=== PATIENT | male | born 1935 | race Caucasian/White ===

== ENCOUNTER → 2019-03-23 | Day surgery (SDC) | payer MEDICARE ==
[2019-03-21 10:39] LABS: BASOPHILS % 0.4 % (0.0-1.0); EOSINOPHILS # (AUTO) 0.1 (0.0-0.4); HEMATOCRIT 40.5 % (38.2-49.6); HEMOGLOBIN 13.1 g/dL (14.0-18.0); LYMPHOCYTES # (AUTO) 1.7 (1.0-3.2); LYMPHOCYTES % 25.3 % (18.0-39.1); MEAN CORPUSCULAR HEMOGLOBIN 28.2 pg (28-32); MEAN CORPUSCULAR HGB CONC 32.3 g/dL (31-35); MEAN CORPUSCULAR VOLUME 87.3 fL (81-99); MONOCYTES # (AUTO) 0.4 (0.2-0.8); MONOCYTES % 6.3 % (4.4-11.3); NEUTROPHILS # (AUTO) 4.5 (2.1-6.9); NEUTROPHILS % 66.9 % (38.7-80.0); PLATELET COUNT 211 x10e3/uL (140-360); RED BLOOD COUNT 4.64 x10e6/uL (4.3-5.7); RED CELL DISTRIBUTION WIDTH 13.8 % (11.7-14.4)
[~2019-03-23] MED LIST: ATORVASTATIN; FISH OIL; GLUCAGON FOR INJ 1 MG VIAL ONE; HYOSCYAMINE 0.125 MG TAB ONE; HYOSCYAMINE SULFATE 0.5 MG/ML INJ ONE; LIDOCAINE HCL 2% LOCAL INJ 5 ML SDV VIAL INJ ONE; PROPOFOL IV EMULSION 10 MG/ML 50 ML VIAL ONE
--- OUTSIDE RECORDS SUMMARY | 2019-03-23 09:30 | XMS REPORT ---
[facility] Address Unknown Phone Unavailable Care Team Providers Care Chief Librarian Branch Name Role Phone Unavailable Unavailable Payers Payer Name Policy Type Policy Number Effective Date Expiration Date Problems This patient has no known problems. Allergies, Adverse Reactions, Alerts Allergy Name Allergy Type Status Severity Reaction(s) Onset Date Inactive Date Treating Clinician Comments No Known Allergies DA Active U 2019-02-21 00:00:00 Penicillins DA Active DC 2019-02-21 00:00:00 Medications This patient has no known medications. Results Test Description Test Time Test Comments Text Results Atomic Results Result Comments FE W/TOTAL IRON BINDING CAP. 2019-02-26 14:08:00 SERUM IRON (test code=IRON) 30 ug/dL 50-175 TOTAL IRON BINDING CAPACITY (test code=TIBC) 282 mcg/dL 250-450 IRON SATURATION (test code=FESAT) 10.64 % 13-45 VITAMIN [id number] 14:08:00* Test Item Value Reference Range Comments VITAMIN B12 (test code=VITB12) 1103 pg/mL 193-986 FOLIC [id number] 14:08:00* Test Item Value Reference Range Comments FOLIC ACID (test code=FOL) 40.7 ng/mL 3.10-17.50 THYROID PROFILE [id number] 14:08:00* Test Item Value Reference Range Comments T3 UPTAKE (test code=T3UP) 32.0 % 30.0-40.0 T4 (THYROXINE) (test code=T4) 9.3 ug/dL 4.5-13.9 T7 (FREE THYROXINE INDEX) (test code=T7) 2.97 FTI 1.3-5.1 THYROID STIMULATING HORMONE (test code=TSH) 0.947 uIU/mL 0.36-3.74 TSH REFERENCE RANGES: EUTHYROID: 0.35 - 4.3 mIU/mL HYPO : > 5.5 mIU/mL HYPER : < 0.35 mIU/mL METHYLMALONIC [id number] 14:08:00* Test Item Value Reference Range Comments METHYLMALONIC ACID (test code=METHM) 155 nmol/L 0-378 [id number] 14:08:00* Test Item Value Reference Range Comments HOMOCYSTEINE (test code=HOMOCY) 10.7 umol/L 0.0-15.0 Performed At: [facility] [address] [id number] Kyle L MD Ph:[phone] FE W/TOTAL IRON BINDING CAP.2019-02-23 09:10:00* Test Item Value Reference Range Comments SERUM IRON (test code=IRON) 30 ug/dL 50-175 TOTAL IRON BINDING CAPACITY (test code=TIBC) 282 mcg/dL 250-450 IRON SATURATION (test code=FESAT) 10.64 % 13-45 VITAMIN [id number] 09:10:00* Test Item Value Reference Range Comments VITAMIN B12 (test code=VITB12) 1103 pg/mL 193-986 FOLIC [id number] 09:10:00* Test Item Value Reference Range Comments FOLIC ACID (test code=FOL) 40.7 ng/mL 3.10-17.50 THYROID PROFILE [id number] 09:10:00* Test Item Value Reference Range Comments T3 UPTAKE (test code=T3UP) 32.0 % 30.0-40.0 T4 (THYROXINE) (test code=T4) 9.3 ug/dL 4.5-13.9 T7 (FREE THYROXINE INDEX) (test code=T7) 2.97 FTI 1.3-5.1 THYROID STIMULATING HORMONE (test code=TSH) 0.947 uIU/mL 0.36-3.74 TSH REFERENCE RANGES: EUTHYROID: 0.35 - 4.3 mIU/mL HYPO : > 5.5 mIU/mL HYPER : < 0.35 mIU/mL METHYLMALONIC [id number] 09:10:00* Test Item Value Reference Range Comments METHYLMALONIC ACID (test code=METHM) nmol/L [id number] 09:10:00* Test Item Value Reference Range Comments HOMOCYSTEINE (test code=HOMOCY) 10.7 umol/L 0.0-15.0 Performed At: [facility] [address] [id number] Jesús Torres MD Ph:[phone] BASIC METABOLIC [id number] 05:36:00* Test Item Value Reference Range Comments SODIUM (test code=NA) 143 mmol/L 136-145 POTASSIUM (test code=K) 4.5 mmol/L 3.5-5.1 CHLORIDE (test code=CL) 108.0 mmol/L 98-107 CARBON DIOXIDE (test code=CO2) 28.0 mmol/L 21-32 ANION GAP (test code=GAP) 11.5 10-20 GLUCOSE (test code=GLU) 94 mg/dL 74-106 BLOOD UREA NITROGEN (test code=BUN) 14 mg/dL 7-18 GLOMERULAR FILTRATION RATE (test code=GFR) > 60 mL/min >=60 Estimated GFR by using Modified MDRD formula.Chronic kidney disease is defined as either kidney damageor GFR <60 mL/min/1.73 m2 for >3 months. CREATININE (test code=CREAT) 1.00 mg/dL 0.7-1.3 BUN/CREATININE RATIO (test code=BUN/CREA) 13.5 10-20 CALCIUM (test code=CA) 8.5 mg/dL 8.5-10.1 BASIC METABOLIC [id number] 05:25:00* Test Item Value Reference Range Comments SODIUM (test code=NA) 143 mmol/L 136-145 POTASSIUM (test code=K) 4.5 mmol/L 3.5-5.1 CHLORIDE (test code=CL) 108.0 mmol/L 98-107 CARBON DIOXIDE (test code=CO2) mmol/L 21-32 ANION GAP (test code=GAP) 10-20 GLUCOSE (test code=GLU) mg/dL 74-106 BLOOD UREA NITROGEN (test code=BUN) mg/dL 7-18 GLOMERULAR FILTRATION RATE (test code=GFR) mL/min >=60 CREATININE (test code=CREAT) mg/dL 0.7-1.3 BUN/CREATININE RATIO (test code=BUN/CREA) 10-20 CALCIUM (test code=CA) mg/dL 8.5-10.1 CBC W/AUTO [id number] 05:12:00* Test Item Value Reference Range Comments WHITE BLOOD CELL (test code=WBC) 8.1 K/mm3 4.5-12.5 RED BLOOD CELL (test code=RBC) 4.48 mill/mm3 4.0-5.8 HEMOGLOBIN (test code=HGB) 12.6 gram/dL 13.0-17.5 HEMATOCRIT (test code=HCT) 38.6 % 42.0-52.0 MEAN CELL VOLUME (test code=MCV) 86.2 fL 80-98 MEAN CELL HGB (test code=MCH) 28.1 picogram 27.0-33.0 MEAN CELL HGB CONCETRATION (test code=MCHC) 32.6 gram/dL 33.0-36.0 RED CELL DISTRIBUTION WIDTH (test code=RDW) 12.6 % 11.6-16.2 RED CELL DISTRIBUTION WIDTH SD (test code=RDW-SD) 39.6 fL 37.0-51.0 PLATELET COUNT (test code=PLT) 219 K/mm3 150-450 MEAN PLATELET VOLUME (test code=MPV) 12.1 fL 6.7-11.0 NEUTROPHIL % (test code=NT%) 71.2 % 39.0-69.0 IMMATURE GRANULOCYTE % (test code=IG%) 0.2 % 0.0-5.0 LYMPHOCYTE % (test code=LY%) 20.9 % 25.0-55.0 MONOCYTE % (test code=MO%) 6.5 % 0.0-10.0 EOSINOPHIL % (test code=EO%) 1.0 % 0.0-5.0 BASOPHIL % (test code=BA%) 0.2 % 0.0-1.0 NUCLEATED RBC % (test code=NRBC%) 0.0 % 0-0 NEUTROPHIL # (test code=NT#) 5.73 K/mm3 1.8-7.7 IMMATURE GRANULOCYTE # (test code=IG#) 0.02 x10 3/uL 0-0.03 LYMPHOCYTE # (test code=LY#) 1.68 K/mm3 1.0-5.0 MONOCYTE # (test code=MO#) 0.52 K/mm3 0-0.8 EOSINOPHIL # (test code=EO#) 0.08 K/mm3 0.0-0.5 BASOPHIL # (test code=BA#) 0.02 K/mm3 0.0-0.2 NUCLEATED RBC # (test code=NRBC#) 0.00 K/mm3 0.0-0.1 FE W/TOTAL IRON BINDING CAP.2019-02-22 11:29:00* Test Item Value Reference Range Comments SERUM IRON (test code=IRON) 30 ug/dL 50-175 TOTAL IRON BINDING CAPACITY (test code=TIBC) 282 mcg/dL 250-450 IRON SATURATION (test code=FESAT) 10.64 % 13-45 VITAMIN [id number] 11:29:00* Test Item Value Reference Range Comments VITAMIN B12 (test code=VITB12) 1103 pg/mL 193-986 FOLIC [id number] 11:29:00* Test Item Value Reference Range Comments FOLIC ACID (test code=FOL) 40.7 ng/mL 3.10-17.50 THYROID PROFILE [id number] 11:29:00* Test Item Value Reference Range Comments T3 UPTAKE (test code=T3UP) 32.0 % 30.0-40.0 T4 (THYROXINE) (test code=T4) 9.3 ug/dL 4.5-13.9 T7 (FREE THYROXINE INDEX) (test code=T7) 2.97 FTI 1.3-5.1 THYROID STIMULATING HORMONE (test code=TSH) 0.947 uIU/mL 0.36-3.74 TSH REFERENCE RANGES: EUTHYROID: 0.35 - 4.3 mIU/mL HYPO : > 5.5 mIU/mL HYPER : < 0.35 mIU/mL METHYLMALONIC [id number] 11:29:00* Test Item Value Reference Range Comments METHYLMALONIC ACID (test code=METHM) nmol/L [id number] 11:29:00* Test Item Value Reference Range Comments HOMOCYSTEINE (test code=HOMOCY) umol/L - XR CHEST 2 [id number] 08:24:00 FAX: Brad Lin MD [phone] [place]: St: ADM Name: BRI FANG [facility] : [birth year] Age/S: 83/M [address] [facility] Unit #: [id number] Loc: V.[address] [place] [address] Phys: Brad Foster MD Acct: [id number] Dis Date: Status: ADM IN PHONE #: [phone] Exam Date: 02/22/2019 0813 FAX #: [phone] Reason: stat not yet done EXAMS: CPT CODE: [id number] XR CHEST 2 V 77442 REASON FOR EXAM: stat not yet done Exam Order Date: 02/22/2019 12:00 AM Ordering M.D.: Brad Foster MD PROCEDURE: - XR CHEST 2 V COMPARISON: CT chest earlier today is available for review. FINDI NGS: Opacity in the infrahilar right lung, primarily in the middle lobe but to a lesser extent in the lower lobe, likely corresponds to the groundglass opacity seen on the prior CT scan and likely represents infect ion. There is no pleural effusion or pneumothorax. Pulmonary vascularity is within normal limits. Cardiomediastinal silhouette is normal in size for technique. The mediastinal contours are within normal limits. Musculoskeletal structures are within normal limits. The visualized upper abdomen is within normal limits. IMP RESSION: Pneumonia involving the right middle and lower lobes. This is b annita characterized on the previous CT scan. at 0824 Reported and signed by: Nicola Reynoso MD CC: Brad Foster MD Technologist: RT ZENOBIA(R) Trnscrd Date/Time/By: 02/22/2019 (823) : By: [email or web address] Orig Print D/T: S: 02/22/2019 (3544) PAGE 1 Signed Report - CT CHEST W/O CONTRAST 2019-02-22 08:20:00 Name: BRI GALVAN [facility] : 1935 Age/S: 83 / M [address] [facility] Unit #: [id number] Loc: [place] [address] Phys: Brad Foster MD Acct: [id number] Dis Date: Status: ADM IN PHONE #: [phone] Exam Date: 02/22/2019 0808 FAX #: [phone] Reason: cap cxr not done x 12h EXAMS: CPT CODE: [id number] CT CHEST W/O CONTRAST 86121 REASON FOR EXAM: cap cxr not done x 12h EXAM ORDER DATE: 02/22/2019 7:19 AM Ordering M.D.: Brad Foster MD PROCEDURE: - CT CHEST W/O CONTRAST Comparison:CT chest September 16, [address] images of the chest were obtained without IV contrast. Reconstructed sagittal and coronal images of the chest were provided for interpretation. Dose reduction techniques were applied. FINDINGS: The absence of IV contrast limits the sensitivity of this exam for detecting soft tissue pathology and differentiating atelectasis from consolidations. Visualized neck: Grossly normal Airways, Lungs and Pleura: There are groundglass opacities in the right middle lobe, medial basal segment of the right lower lobe, and in the posterior basal segment of the right lower lobe. These opacities may represent a multifocal infection. There are a few nodular opacities in the left lower lobe (3/40) that are unchanged from the prior exam and may represent parenchymal scarring from a prior infection. Airways are patent. No pleural abnormality. Heart, great vessels, pulmonary vessels, mediastinum: No cardiomegaly or pericardial effusion. Three-vessel coronary atherosclerosis is present. Atherosclerotic disease is also scattered throughout the thoracic aorta. Thoracic aorta and pulmonary trunk are normal in caliber. Lymph nodes: No axillary or internal mammary adenopathy. Hilar lymph nodes are suboptimally evaluated due to the absence of IV contrast. There are a few subcentimeter mediastinal lymph nodes which are normal in size by CT criteria. Musculoskeletal/chest wall: Degenerative changes are s een throughout the visualized spine. PAGE 1 Signed Report (CONTINUED) Name: BRI GALVAN [facility] : 1935 Age/S: 83 / M [address] [facility] Unit #: [id number] Loc: [place] [address] Phys: Brad Foster MD Acct: [id number] Dis Date: Status: ADM IN PHONE #: [phone] Exam Date: 08 FAX #: [phone] Reason: cap cxr not done x 12h EXAMS: CPT CODE: [id number] CT CHEST W/O CONTRAST 26256 <Continued> Visualized upper abdomen: Poorly demarcated hypodensity is present in the left lobe of the liver. This is suboptimally evaluated in the absence of IV contrast but is unchanged from the prior CT scan and likely represents a benign finding. Stones are present in the gallbladder. No pericholecystic fluid or gallbladder wall thickening to suggest acute cholecystitis. Small hiatal hernia is present. Cystic lesion in the left kidney is unchanged from the prior exam. IMPRESSION: Findings of infectious process involving the right middle lobe and right lower lobe as described above. Follow-up imaging in 8-12 weeks is recommended to ensure resolution. at 0820 Reported and signed by: Nicola Reynoso MD CC: Brad Foster MD Technologist:Abdiel Castellon RT(R),(MR),(CT) CTDI: DLP: Trnscb Date/Time: 02/22/2019 (819) [email or web address].RR31 Orig Print D/T: S: 02/22/2019 (822) PAGE 2 Signed Report COMPREHENSIVE METABOLIC [id number] 19:31:00* Test Item Value Reference Range Comments SODIUM (test code=NA) 141 mmol/L 136-145 POTASSIUM (test code=K) 4.0 mmol/L 3.5-5.1 CHLORIDE (test code=CL) 108.0 mmol/L 98-107 CARBON DIOXIDE (test code=CO2) 29.0 mmol/L 21-32 ANION GAP (test code=GAP) 8.0 10-20 GLUCOSE (test code=GLU) 106 mg/dL 74-106 BLOOD UREA NITROGEN (test code=BUN) 13 mg/dL 7-18 GLOMERULAR FILTRATION RATE (test code=GFR) > 60 mL/min >=60 Estimated GFR by using Modified MDRD formula.Chronic kidney disease is defined as either kidney damageor GFR <60 mL/min/1.73 m2 for >3 months. CREATININE (test code=CREAT) 1.10 mg/dL 0.7-1.3 BUN/CREATININE RATIO (test code=BUN/CREA) 11.4 10-20 TOTAL PROTEIN (test code=PROT) 7.0 gram/dL 6.4-8.2 ALBUMIN (test code=ALB) 3.2 g/dL 3.4-5.0 GLOBULIN (test code=GLOB) 3.8 gram/dL 2.7-4.2 ALBUMIN/GLOBULIN RATIO (test code=A/G) 0.8 0.75-1.50 CALCIUM (test code=CA) 8.5 mg/dL 8.5-10.1 BILIRUBIN TOTAL (test code=BILT) 0.70 mg/dL 0.0-1.0 SGOT/AST (test code=AST) 15 IUnit/L 15-37 SGPT/ALT (test code=ALT) 19 IUnit/L 12-78 ALKALINE PHOSPHATASE TOTAL (test code=ALKP) 46 IUnit/L 45-117 Note change in reference range due to change in reagent. COMPREHENSIVE METABOLIC [id number] 19:25:00* Test Item Value Reference Range Comments SODIUM (test code=NA) 141 mmol/L 136-145 POTASSIUM (test code=K) 4.0 mmol/L 3.5-5.1 CHLORIDE (test code=CL) 108.0 mmol/L 98-107 CARBON DIOXIDE (test code=CO2) mmol/L 21-32 ANION GAP (test code=GAP) 10-20 GLUCOSE (test code=GLU) mg/dL 74-106 BLOOD UREA NITROGEN (test code=BUN) mg/dL 7-18 GLOMERULAR FILTRATION RATE (test code=GFR) mL/min >=60 CREATININE (test code=CREAT) mg/dL 0.7-1.3 BUN/CREATININE RATIO (test code=BUN/CREA) 10-20 TOTAL PROTEIN (test code=PROT) gram/dL 6.4-8.2 ALBUMIN (test code=ALB) g/dL 3.4-5.0 GLOBULIN (test code=GLOB) gram/dL 2.7-4.2 ALBUMIN/GLOBULIN RATIO (test code=A/G) 0.75-1.50 CALCIUM (test code=CA) mg/dL 8.5-10.1 BILIRUBIN TOTAL (test code=BILT) mg/dL 0.0-1.0 SGOT/AST (test code=AST) IUnit/L 15-37 SGPT/ALT (test code=ALT) IUnit/L 12-78 ALKALINE PHOSPHATASE TOTAL (test code=ALKP) IUnit/L 45-117 CBC W/AUTO [id number] 19:19:00* Test Item Value Reference Range Comments WHITE BLOOD CELL (test code=WBC) 10.7 K/mm3 4.5-12.5 RED BLOOD CELL (test code=RBC) 4.46 mill/mm3 4.0-5.8 HEMOGLOBIN (test code=HGB) 12.4 gram/dL 13.0-17.5 HEMATOCRIT (test code=HCT) 38.4 % 42.0-52.0 MEAN CELL VOLUME (test code=MCV) 86.1 fL 80-98 MEAN CELL HGB (test code=MCH) 27.8 picogram 27.0-33.0 MEAN CELL HGB CONCETRATION (test code=MCHC) 32.3 gram/dL 33.0-36.0 RED CELL DISTRIBUTION WIDTH (test code=RDW) 12.7 % 11.6-16.2 RED CELL DISTRIBUTION WIDTH SD (test code=RDW-SD) 39.9 fL 37.0-51.0 PLATELET COUNT (test code=PLT) 191 K/mm3 150-450 MEAN PLATELET VOLUME (test code=MPV) 11.8 fL 6.7-11.0 NEUTROPHIL % (test code=NT%) 78.3 % 39.0-69.0 IMMATURE GRANULOCYTE % (test code=IG%) 0.4 % 0.0-5.0 LYMPHOCYTE % (test code=LY%) 15.8 % 25.0-55.0 MONOCYTE % (test code=MO%) 5.1 % 0.0-10.0 EOSINOPHIL % (test code=EO%) 0.3 % 0.0-5.0 BASOPHIL % (test code=BA%) 0.1 % 0.0-1.0 NUCLEATED RBC % (test code=NRBC%) 0.0 % 0-0 NEUTROPHIL # (test code=NT#) 8.40 K/mm3 1.8-7.7 IMMATURE GRANULOCYTE # (test code=IG#) 0.04 x10 3/uL 0-0.03 LYMPHOCYTE # (test code=LY#) 1.69 K/mm3 1.0-5.0 MONOCYTE # (test code=MO#) 0.55 K/mm3 0-0.8 EOSINOPHIL # (test code=EO#) 0.03 K/mm3 0.0-0.5 BASOPHIL # (test code=BA#) 0.01 K/mm3 0.0-0.2 NUCLEATED RBC # (test code=NRBC#) 0.00 K/mm3 0.0-0.1 MANUAL DIFF REQUIRED (test code=MDIFF) NO VITAMIN [id number] 18:07:00* Test Item Value Reference Range Comments VITAMIN B12 (test code=VITB12) 633 pg/mL 193-986 METHYLMALONIC [id number] 18:07:00* Test Item Value Reference Range Comments METHYLMALONIC ACID (test code=METHM) 203 nmol/L 0-378 - CT PELVIS W/O [id number] 09:57:00 Name: BRI GALVAN [facility] : 1935 Age/S: 82 / M [address] [facility] Unit #: [id number] Loc: [place] [address] Phys: Brad Foster MD Acct: [id number] Dis Date: Status: REG CLI PHONE #: [phone] Exam Date: 08/09/2018915 FAX #: [phone] Reason: PELVIC PAIN AND PERINEAL EXAMS: CPT CODE: [id number] CT PELVIS W/O CONTRAST 62850 HISTORY: Pelvic and perineal pain. COMPARISON: None available. CT pelvis without contrast: Automated exposure control. Extensive sigmoid diverticulosis without diverticulitis. No bowel obstruction. No colitis or enteritis either. Appendix is not visible but no inflammation. No free fluid or free air. Unremarkable well-distended urinary bladder. Prostatomegaly at 5 cm. No pelvic pathologic adenopathy. Phleboliths. No free fluid or free air. The subcutaneous tissues and the musculature are normal in appearance. No lytic or blastic lesions are noted within the bony skel eton. Bone islands. IMPRESSION: No pelvic path ologic adenopathy. Sigmoid diverticulosis without diverticulitis. Append ix is not visible but no inflammation. Prostatomegaly at 5 cm. Unremarkable well-distended urinary bladder. No pathologic adenopathy. No inflammatory changes within the perineum. No drainable fluid collecti ons. No lytic or blastic lesions within the bony skeleton. E lectronically Signed by Serg Dave on 08/09/2018 at 0957 Reported and signed by: Andi Dave M.D. CC: Brad Foster MD Technologist:Abdiel Castellon RT(R),(MR ),(CT); CTDI: DLP: Trnscb Date/Time: 08/09/2018 (0957) t.[email or web address].TH4 Orig Print D/T: S: 08/09/2018 (1000) CTDI: DLP: PAGE 1 Signed Report - CT PELVIS W/O [id number] 09:57:00 Name: BRI GAVLAN [facility] : 1935 Age/S: 82 / M [address] [facility] Unit #: [id number] Loc: [facility] [place] [address] Phys: Brad Foster MD Acct: [id number] Dis Date: Status: DEP CLI PHONE #: [phone] Exam Date: 08/09/2018915 FAX #: [phone] Reason: PELVIC PAIN AND PERINEAL EXAMS: CPT CODE: [id number] CT PELVIS W/O CONTRAST 38868 HISTORY: Pelvic and perineal pain. COMPARISON: None available. CT pelvis without contrast: Automated exposure control. Extensive sigmoid diverticulosis without diverticulitis. No bowel obstruction. No colitis or enteritis either. Appendix is not visible but no inflammation. No free fluid or free air. Unremarkable well-distended urinary bladder. Prostatomegaly at 5 cm. No pelvic pathologic adenopathy. Phleboliths. No free fluid or free air. The subcutaneous tissues and the musculature are normal in appearance. No lytic or blastic lesions are noted within the bony skel eton. Bone islands. IMPRESSION: No pelvic path ologic adenopathy. Sigmoid diverticulosis without diverticulitis. Append ix is not visible but no inflammation. Prostatomegaly at 5 cm. Unremarkable well-distended urinary bladder. No pathologic adenopathy. No inflammatory changes within the perineum. No drainable fluid collecti ons. No lytic or blastic lesions within the bony skeleton. E lectronically Signed by Serg Dave on 08/09/2018 at 0957 Reported and signed by: Andi Dave M.D. CC: Brad Foster MD Technologist:Abdiel Castellon RT(R),(MR ),(CT); CTDI: DLP: Trnscb Date/Time: 08/09/2018 (0957) [email or web address].TH4 Orig Print D/T: S: 08/09/2018 (1000) PAGE 1 Signed Report VITAMIN [id number] 09:48:00* Test Item Value Reference Range Comments VITAMIN B12 (test code=VITB12) 633 pg/mL 193-986 METHYLMALONIC [id number] 09:48:00* Test Item Value Reference Range Comments METHYLMALONIC ACID (test code=METHM) nmol/L - XR CHEST 2 [id number] 08:53:00 FAX: Brad Lin MD [phone] [place]: O St: REG Name: Winston MORELOSBRI CAGE Chidi [facility] : [birth year] Age/S: 82/M [address] [facility] Unit #: [id number] Loc: [place] [id number] Phys: Brad Foster MD Acct: [id number] Dis Date: Status: REG CLI PHONE #: [phone] Exam Date: 08/09/2018 0958 FAX #: [phone] Reason: R10.2 EXAMS: CPT CODE: [id number] XR CHEST 2 V 99247 HISTORY: R10.2. COMP ARISON: None available. AP and lateral view of the chest: No acute infiltrates, effusion or congestion. Cardiac and the medias tinal silhouette are normal. IMPRESSION: No ac lorena infiltrates, effusion or congestion. at 0853 Reported and herbert d by: Andi Dave M.D. CC: Brad Foster MD Technologist: RT Dima(Chidi) Trnscrd Date/Time/By: 08/09/2018 (0853) : By: [email or web address] Orig Print D/T: S: 08/09/2018 (0959) PAGE 1 Signed Report - XR CHEST 2 V 2018-08-09 08:53:00 FAX: Brad Lin MD [phone] [place]: O St: DEP Name: Winston BRI CANNON [facility] : [birth year] Age/S: 82/M [address] [facility] Unit #: [id number] Loc: [facility] [place] [address] Phys: Brad Foster MD Acct: [id number] Dis Date: Status: DEP CLI PHONE #: [phone] Exam Date: 08/09/2018 0958 FAX #: [phone] Reason: R10.2 EXAMS: CPT CODE: [id number] XR CHEST 2 V 37330 HISTORY: R10.2. COMP ARISON: None available. AP and lateral view of the chest: No acute infiltrates, effusion or congestion. Cardiac and the medias tinal silhouette are normal. IMPRESSION: No ac lorena infiltrates, effusion or congestion. at 0853 Reported and herbert d by: Andi Dave M.D. CC: Brad Foster MD Technologist: NOY Ch) Trnscrd Date/Time/By: 08/09/2018 (0853) : By: [email or web address] Orig Print D/T: S: 08/09/2018 (0959) PAGE 1 Signed Report
[2019-03-23 13:45] VITALS: BP 121/64
--- NOTE | 2019-03-23 18:10 | Operative Report ---
DATE OF PROCEDURE: 03/23/2019 SURGEON: John Castellanos MD PROCEDURE: Colonoscopy with polypectomy. INDICATIONS FOR COLONOSCOPY: Colorectal cancer screening. MEDICATIONS: The patient was done under MAC, please see anesthesiologist's note. PROCEDURE IN DETAIL: With the patient in left lateral decubitus position, a flexible fiberoptic Olympus colonoscope was inserted into the rectum with ease and advanced all the way to the cecum. Mucosa overlying the cecum appeared to be within normal limits. The scope was then withdrawn slowly and approximately 8 mm sessile polyp was removed per hot snare polypectomy and polypectomy site was hemoclipped. The rest of the ascending, transverse, and descending appeared to be within normal limits. Some diverticular disease was noted in the sigmoid colon. One polyp was hot biopsied from the rectum. The scope was then retroflexed into the distal rectum and small internal hemorrhoids were noted, none of which was actively bleeding. The scope was then straightened out, it was subsequently withdrawn, and the patient tolerated the procedure well. IMPRESSION: 1. Ascending colon polyp approximately 8 mm in size, hot snared and hemoclipped. 2. Diverticulosis. 3. Rectal polyp, hot biopsied. 4. Internal hemorrhoids, none actively bleeding. PLAN: Follow up histology. Initiate high-fiber, low-fat diet. Initiate high-fiber supplement. No followup colonoscopy is necessary. John Castellanos MD [facility]/MODL /[id number] cc: Brad Foster MD
== END | disposition home or self-care (01) ==
LOC: OR 09:28
PROVIDERS: ATTEND Internal Medicine Gastroenterology
DX: Z12.11 Encounter for screening for malignant neoplasm of colon (principal); K63.5 Polyp of colon; K62.1 Rectal polyp; K57.30 Diverticulosis of large intestine without perforation or abscess without bleeding; K64.8 Other hemorrhoids; K21.9 Gastro-esophageal reflux disease without esophagitis; E78.5 Hyperlipidemia, unspecified; R03.0 Elevated blood-pressure reading, without diagnosis of hypertension; R00.1 Bradycardia, unspecified; Z01.810 Encounter for preprocedural cardiovascular examination
CPT/HCPCS: 36415; 45378; 45384; 45385; 85025; 88305; 93005; J1610; J1980; J2001